=== PATIENT | female | born 1985 | race Hispanic/Latino ===

== ENCOUNTER 2024-06-05 10:06 | Day surgery (SDC) | payer OTHER ==
[2024-06-01 11:27] VITALS: BMI 32.6
[2024-06-01 12:21] LABS: Hemoglobin 13.5 g/dL (12.0-15.5); Mean Corpuscular HGB CONC 33.8 g/dL (32.0-36.0); Mean Corpuscular Hemoglobin 27.6 pg (27.0-33.0); Mean Corpuscular Volume 81.6 fL (81.6-98.3); Mean Platelet Volume 9.2 fL (7.4-10.4); Platelet Count 218 10x3/uL (150-450); RBC Distribution Width 13.3 % (11.5-14.5); White Blood Cell (WBC) Count 8.62 10x3/uL (3.5-10.5)
[2024-06-01 12:57] LABS: BHCG - Serum Negative (NEGATIVE); Pregs Control Background? CLEAR/WHITE (CLR/WHITE); Pregs Control Bar Appear? YES (CONTROL BAR)
[2024-06-01 13:36] LABS: Anion Gap 15 mmol/L (10-20); BUN (Urea Nitrogen) 12 mg/dL (7.0-18.7); Calc. Creatinine Clearance 0 mL/min (70-130); Calcium 9.2 mg/dL (7.8-10.44); Carbon Dioxide 22 mmol/L (22-29); Chloride 106 mmol/L (98-107); Estimated GFR 120; Glucose 261 mg/dL (70-105); Potassium 3.9 mmol/L (3.5-5.1); Sodium 139 mmol/L (136-145)
[2024-06-05] MEDS ORDERED: Gabapentin 300 MG CAP ONE (10:30)
[2024-06-05] MEDS ORDERED: CeleCOXIB 100 MG CAP ONE (10:30)
[2024-06-05] MEDS ORDERED: Famotidine/PF 20 mg/2ml Vial ONE (10:35)
[2024-06-05] MEDS ORDERED: Ondansetron PF 4 MG/2 ML Vial ONE (10:49)
[2024-06-05] MEDS ORDERED: Rocuronium Bromide 10 MG/ML (10ML VIAL) ONE (10:49)
[2024-06-05] MEDS ORDERED: SUGAMMADEX SODIUM 200 MG/2 ML VIAL ONE (10:49)
[2024-06-05] MEDS ORDERED: Dexamethasone 20 MG/5 ML VIAL ONE (10:49)
[2024-06-05] MEDS ORDERED: Lidocaine 2% PF 5 ML VIAL ONE (10:49)
[2024-06-05] MEDS ORDERED: Methylene Blue 50 MG/10 ML AMPUL ONE (11:18)
[2024-06-05] MEDS ORDERED: Bupivacaine HCl 0.5%/Epinephrine 1:200,000/PF 30 ml Vial ONE (11:18)
[2024-06-05] MEDS ORDERED: Fentanyl 100 MCG/2 ML VIAL ONE ×3 (11:42→14:04)
[2024-06-05] MEDS ORDERED: CEFAZOLIN 2 GM VIAL ONE (11:46)
[2024-06-05] MEDS ORDERED: PHENYLEPHRINE-NS 100 MCG/ML 10 ML SYRINGE ONE ×2 (12:09→12:23)
[2024-06-05] MEDS ORDERED: diphenhydrAMINE 50 MG/ML VIAL ONE (12:31)
[2024-06-05] MEDS ORDERED: HYDROcodone/Acetaminophen 5/325 mg Tablet ONE (14:55)
== END 2024-06-05 15:30 | disposition home or self-care (01) ==
LOC: CSHSDC 10:06
PROVIDERS: ATTEND Obstetrics & Gynecology
PROC: 0UT7FZZ Resection of Bilateral Fallopian Tubes, Via Natural or Artificial Opening With Percutaneous Endoscopic Assistance (ICD-10-PCS; principal; 2024-06-05)
PROC: 0UT2FZZ Resection of Bilateral Ovaries, Via Natural or Artificial Opening With Percutaneous Endoscopic Assistance (ICD-10-PCS; principal; 2024-06-05)
PROC: 3E1M48Z Irrigation of Peritoneal Cavity using Irrigating Substance, Percutaneous Endoscopic Approach (ICD-10-PCS; principal; 2024-06-05)
DX: C79.61 Secondary malignant neoplasm of right ovary (principal); N83.202 Unspecified ovarian cyst, left side; N83.8 Other noninflammatory disorders of ovary, fallopian tube and broad ligament; I10 Essential (primary) hypertension; E11.9 Type 2 diabetes mellitus without complications; K21.9 Gastro-esophageal reflux disease without esophagitis; Z85.038 Personal history of other malignant neoplasm of large intestine; Z79.2 Long term (current) use of antibiotics; Z79.899 Other long term (current) drug therapy
CPT/HCPCS: 80048; 84703; 85027; 86850; 86900; 86901; 88112; 88305; 88341; 88342; J1100; J1200; J2405; J3010; J3490; S2900